=== PATIENT | female | born 1995 | race Caucasian/White ===

== ENCOUNTER 2017-01-04 14:55 | Emergency (ER) ==
[2017-01-04 15:05] VITALS: BP 129/84; TEMP 98.6; BMI 36.8
[2017-01-04 15:50] LABS: BASOPHILS % (AUTO) 0.2 % (0.0-3.0); EOSINOPHILS # (AUTO) 0.2 K/ul (0.0-0.7); EOSINOPHILS % (AUTO) 1.3 % (0.0-7.0); HEMATOCRIT 36.7 % (37.0-47.0); HEMOGLOBIN 13.1 g/dl (12.0-16.0); IMMATURE GRANULOCYTE % (AUTO) 0.3 % (0.0-5.0); LYMPHOCYTES # (AUTO) 2.5 K/uL (0.60-3.4); LYMPHOCYTES % (AUTO) 19.3 (10.0-50.0); MEAN CORPUSCULAR HEMOGLOBIN 31.7 pg (27.0-31.0); MEAN CORPUSCULAR HGB CONC 35.7 (31.8-35.4); MEAN CORPUSCULAR VOLUME 88.9 fl (81.0-99.0); MONOCYTES # (AUTO) 0.7 K/uL (0.4-2.0); MONOCYTES % (AUTO) 5.4 (0-10); NEUTROPHILS # (AUTO) 9.4 K/ul (2.0-6.9); NEUTROPHILS % (AUTO) 73.5; PLATELET COUNT 260 10^3/uL (140-440); RED BLOOD COUNT 4.13 10^6/ul (4.20-5.40); WHITE BLOOD COUNT 12.78 K/ul (4.6-10.2)
[2017-01-04 16:07] LABS: FLU INTERNAL QC INTERNAL QC VALID; RAPID FLU A NEGATIVE (NEGATIVE); RAPID FLU B NEGATIVE (NEGATIVE)
[2017-01-04 16:08] LABS: ALBUMIN 3.4 g/dL (3.4-5.0); ALBUMIN/GLOBULIN RATIO 0.81; ANION GAP 13.7; BILIRUBIN,TOTAL 0.21 mg/dL (0.00-1.20); CALCIUM 9.6 mg/dL (8.2-10.2); CREATININE 0.6 mg/dL (0.60-1.30); POTASSIUM 3.7 mmol/L (3.5-5.10); TOTAL PROTEIN 7.6 g/dL (6.4-8.2)
--- NOTE | 2017-01-04 16:15 | ED.PDOC ---
General ED Provider: Dr. KIRTI ENCINAS Chief Complaint: Respiratory Complaint Stated Complaint: cough, cold symptoms Time Seen by Physician: 15:00 Mode of Arrival: Walk-In Information Source: Patient Exam Limitations: No limitations Primary Care Provider: CIELO MENDOZA Nursing and Triage Documentation Reviewed and Agree: Yes Respiratory Complaint Exam - Respiratory Complaint/Exam Onset/Duration: 1 day Symptoms Are: Still present Timing: Constant Initial Severity: Moderate Current Severity: Moderate Location: Throat Character: Reports: Non-productive cough Aggravating: Reports: Weather Alleviating: Reports: None Associated Signs and Symptoms: Denies: Rapid breathing, Dyspnea, Fever, Chills, Chest pain, Pleuritic chest pain, Wheezing, Hemoptysis, Dizziness, Calf pain, Calf swelling, Edema, URI, Nasal congestion, Hoarseness, Sinus discomfort, Vomiting, Sore throat, Weight loss, Decreased oral intake, Increased thirst, Increased appetite, Increased urination Related History: Reports: Similar episode History of Healthcare-Acquired Pneumonia: No Related Surgical History: Reports: None Pulmonary Embolism Risk Factors: Smoking Cardiac Risk Factors: Reports: None Pseudomonas Risk Factors: Reports: None Tuberculosis Risk Factors: Reports: None Home Oxygen Use: No Recent Stress Test: No Recent Echo/LV Function: No Current Antibiotic Use: No Current Asthma Medication Use: No Respiratory Distress: None Inadequate Respiratory Effort: No Dysphagia Present: No Stridor Present: No JVD Present: No Accessory Muscle Use: No Retractions: Not Present Diminished Breath Sounds: No Grunting Respirations: No Kussmaul Respirations: No Review of Systems - Review Of Systems Constitutional: Reports: Malaise Eyes: Reports: No symptoms Ears, Nose, Mouth, Throat: Reports: Throat pain Respiratory: Reports: No symptoms Cardiac: Reports: No symptoms GI: Reports: No symptoms : Reports: No symptoms Musculoskeletal: Reports: No symptoms Skin: Reports: No symptoms Neurological: Reports: No symptoms Endocrine: Reports: No symptoms Hematologic/Lymphatic: Reports: No symptoms All Other Systems: Reviewed and Negative Past Medical History - Past Medical History Previously Healthy: Yes Endocrine: Reports: None Cardiovascular: Reports: None Respiratory: Reports: None Hematological: Reports: None Gastrointestinal: Reports: None Genitourinary: Reports: None Neuro/Psych: Reports: None Musculoskeletal: Reports: None Cancer: Reports: None Last Menstrual Period: 18 WEEKS AGO - Surgical History General Surgical History: Reports: None - Family History Family History: Reports: None - Social History Smoking Status: Current every day smoker Hx Substance Use: No Alcohol Screening: None Physical Exam - Physical Exam Appearance: Well-appearing, No pain distress, Well-nourished Eyes: FLAVIO, EOMI, Conjunctiva clear ENT: Ears normal, Nose normal, Oropharynx normal Respiratory: Airway patent, Breath sounds clear, Breath sounds equal, Respirations nonlabored Cardiovascular: RRR, Pulses normal, No rub, No murmur GI/: Soft, Nontender, No masses, Bowel sounds normal, No Organomegaly Musculoskeletal: Normal strength, ROM intact, No edema, No calf tenderness Skin: Warm, Dry, Normal color Neurological: Sensation intact, Motor intact, Reflexes intact, Cranial nerves intact, Alert, Oriented Psychiatric: Affect appropriate, Mood appropriate Critical Care Note - Critical Care Note Total Time (mins): 0 Course - Course Hematology/Chemistry: 01/04/17 15:43 01/04/17 15:43 Orders, Labs, Meds: Lab Review 01/04/17 15:43 WBC 12.78 H RBC 4.13 L Hgb 13.1 Hct 36.7 L MCV 88.9 MCH 31.7 H MCHC 35.7 H RDW Coeff of Berto 12.9 Plt Count 260 Immature Gran % (Auto) 0.3 Neut % (Auto) 73.5 Lymph % (Auto) 19.3 Mcpherson % (Auto) 5.4 Eos % (Auto) 1.3 Baso % (Auto) 0.2 Immature Gran # (Auto) 0.0 Neut # 9.4 H Lymph # 2.5 Mcpherson # 0.7 Eos # 0.2 Baso # 0.0 Sodium 137 Potassium 3.7 Chloride 105 Carbon Dioxide 22 Anion Gap 13.7 BUN 6 L Creatinine 0.60 Estimated GFR (MDRD) 124.00 BUN/Creatinine Ratio 10.00 Glucose 101 Calcium 9.6 Total Bilirubin 0.21 AST 15 ALT 19 Alkaline Phosphatase 58 Total Protein 7.6 Albumin 3.4 Globulin 4.2 Albumin/Globulin Ratio 0.81 Influenza A (Rapid) Negative Influenza B (Rapid) Negative Orders Category Date Time Status BLOOD CULTURE Stat LAB 01/04/17 15:43 Received CBC W/ AUTO DIFF Stat LAB 01/04/17 15:43 Completed COMPREHENSIVE METABOLIC PANEL Stat LAB 01/04/17 15:43 Received MOLECULAR GROUP A STREP Stat LAB 01/04/17 15:43 Results RAPID FLU A/B Stat LAB 01/04/17 15:43 Completed STREP SCREEN Stat LAB 01/04/17 15:43 Results Vital Signs: Temp Pulse Resp BP Pulse Ox 01/04/17 15:01 98.6 F 107 H 16 129/84 98 Departure - Departure Time of Disposition: 17:00 Disposition: HOME SELF-CARE Discharge Problem: Viral infection Instructions: Viral Syndrome (ED) Condition: Good Pt referred to PMD for follow-up: No Additional Instructions: Please call your Family Physician as soon as possible to schedule a follow-up appointment. Allergies/Adverse Reactions: Allergies amoxicillin Adverse Reaction (Verified 01/04/17 15:05) cefaclor [From Ceclor] Adverse Reaction (Verified 01/04/17 15:05) ciprofloxacin [From Ciprodex] Adverse Reaction (Verified 01/04/17 15:05) dexamethasone [From Ciprodex] Adverse Reaction (Verified 01/04/17 15:05) POLYHISTINE Adverse Reaction (Uncoded 01/04/17 15:05) SUPPREX Adverse Reaction (Uncoded 01/04/17 15:05) Home Medications: Ambulatory Orders Pnv95/Ferrous Fumarate/FA [ Tablet] 1 each PO DAILY 01/04/17
== END 2017-01-04 16:48 | disposition home or self-care (01) ==
LOC: ED 14:55
DX: B34.9 Viral infection, unspecified (principal); F17.210 Nicotine dependence, cigarettes, uncomplicated
CPT/HCPCS: 36415; 80053; 85025; 87040; 87651; 87804; 87880; 99283

== ENCOUNTER 2017-10-17 08:11 | Outpatient (CLI) ==
--- NOTE | 2017-10-17 08:44 | US ---
EXAM: Left breast ultrasound HISTORY: Unspecified lump in the left breast COMPARISON: None FINDINGS: Ultrasound left breast was performed in the region of clinical concern, 4 o'clock position . No mass or cyst identified. No sonographic abnormality identified. IMPRESSION: No sonographic abnormality identified in the region of clinical concern. Clinical follo w-up recommended. BIRADS category 1, negative
[2017-10-17 08:46] LABS: BASOPHILS % (AUTO) 0.4 % (0.0-3.0); EOSINOPHILS # (AUTO) 0.2 K/ul (0.0-0.7); EOSINOPHILS % (AUTO) 1.9 % (0.0-7.0); HEMATOCRIT 46.9 % (37.0-47.0); HEMOGLOBIN 16.5 g/dl (12.0-16.0); IMMATURE GRANULOCYTE % (AUTO) 0.2 % (0.0-5.0); MEAN CORPUSCULAR HEMOGLOBIN 30.8 pg (27.0-31.0); MEAN CORPUSCULAR HGB CONC 35.2 (31.8-35.4); MEAN CORPUSCULAR VOLUME 87.5 fl (81.0-99.0); MONOCYTES # (AUTO) 0.5 K/uL (0.4-2.0); MONOCYTES % (AUTO) 6.4 (0-10); NEUTROPHILS # (AUTO) 4.7 K/ul (2.0-6.9); NEUTROPHILS % (AUTO) 56.1; PLATELET COUNT 267 10^3/uL (140-440); RED BLOOD COUNT 5.36 10^6/ul (4.20-5.40); WHITE BLOOD COUNT 8.44 K/ul (4.6-10.2)
[2017-10-17 09:29] LABS: ALBUMIN 3.7 g/dL (3.4-5.0); ALBUMIN/GLOBULIN RATIO 0.95; ANION GAP 11.6; BILIRUBIN,TOTAL 0.39 mg/dL (0.00-1.20); BUN/CREATININE RATIO 13.41; CALCIUM 9.6 mg/dL (8.2-10.2); CHOL/HDL RATIO 5.1 (4.5-5.5); CREATININE 0.82 mg/dL (0.60-1.30); POTASSIUM 3.6 mmol/L (3.5-5.10); TOTAL PROTEIN 7.6 g/dL (6.4-8.2)
== END 2017-10-17 08:12 | disposition home or self-care (01) ==
LOC: RAD 08:11
PROVIDERS: ATTEND Nurse Practitioner Family
DX: N63.20 Unspecified lump in the left breast, unspecified quadrant (principal); N64.4 Mastodynia; Z00.00 Encounter for general adult medical examination without abnormal findings
CPT/HCPCS: 36415; 80053; 80061; 84443; 85025

== ENCOUNTER 2017-10-31 14:43 | Outpatient (CLI) | END 2017-10-31 14:44 | disposition home or self-care (01) | LOC: LAB 14:43 | PROVIDERS: ATTEND Nurse Practitioner Family | DX: J02.9 Acute pharyngitis, unspecified (principal) | CPT/HCPCS: 87651; 87880 ==

== ENCOUNTER 2018-03-21 08:48 | Outpatient (CLI) | END 2018-03-21 08:49 | disposition home or self-care (01) | LOC: LAB 08:48 | PROVIDERS: ATTEND Family Medicine | DX: L68.0 Hirsutism (principal); Z68.38 Body mass index [BMI] 38.0-38.9, adult; O24.419 Gestational diabetes mellitus in pregnancy, unspecified control | CPT/HCPCS: 36415; 80053; 82626; 83036; 84402; 84443; 85025 ==

== ENCOUNTER 2018-08-29 02:15 | Emergency (ER) ==
[2018-08-29 02:27] VITALS: BP 125/85; TEMP 97.2
[2018-08-29] MEDS ORDERED: MORPHINE 2 MG/ML SYRINGE IM STA (02:38)
[2018-08-29] MEDS ORDERED: ZOFRAN 4 MG/2 ML IM STA (02:39)
[2018-08-29] MEDS ORDERED: TORADOL IM STA (02:39)
--- NOTE | 2018-08-29 02:42 | ED.PDOC ---
General ED Provider: Dr. CAIO RODRIGEZ-ER Chief Complaint: Earache Stated Complaint: my ear hurts--its so swollen Time Seen by Physician: 02:20 Mode of Arrival: Walk-In Information Source: Patient Exam Limitations: No limitations Primary Care Provider: SHANELL EDUARDO Nursing and Triage Documentation Reviewed and Agree: Yes Does patient meet sepsis criteria?: No System Inflammatory Response Syndrome: Not Applicable Sepsis Protocol: For patient's 13 years and over: Temp is 96.8 and below OR 101 and greater Pulse >90 BPM Resp >20/minute Acutely Altered Mental Status Are patient's symptoms suggestive of a new infection, such as: -Pneumonia -Skin, Soft Tissue -Endocarditis -UTI -Bone, Joint Infection -Implantable Device -Acute Abdominal Infection -Wound Infection -Meningitis -Blood Stream Catheter Infection -Unknown EENT Complaint Exam - Ear Complaint/Exam Onset/Duration: 2 days Symptoms Are: Still present Timing: Constant Initial Severity: Mild Current Severity: Moderate Character: Reports: Dull pain, Aching pain, Throbbing pain Aggravating: Reports: None Alleviating: Reports: None Associated Signs and Symptoms: Reports: Ear swelling, Pain to external ear Related History: Reports: Similar Episode Ear Surgical History: None Vesicles to External Pinna: No Vesicles to Tragus: No TMJ Tenderness: None Tragal Tenderness: Right External Canal: Erythema, Tenderness, Swelling Tympanic Membrane: Erythema Differential Diagnoses: Otitis Externa, Otitis Media Review of Systems - Review Of Systems Constitutional: Reports: No symptoms Eyes: Reports: No symptoms Ears, Nose, Mouth, Throat: Reports: Ear pain Respiratory: Reports: No symptoms Cardiac: Reports: No symptoms GI: Reports: No symptoms : Reports: No symptoms Musculoskeletal: Reports: No symptoms Skin: Reports: No symptoms Neurological: Reports: No symptoms Endocrine: Reports: No symptoms Hematologic/Lymphatic: Reports: No symptoms All Other Systems: Reviewed and Negative Past Medical History - Past Medical History Previously Healthy: Yes Endocrine: Reports: None Cardiovascular: Reports: None Respiratory: Reports: None Hematological: Reports: None Gastrointestinal: Reports: None Genitourinary: Reports: None Neuro/Psych: Reports: None Musculoskeletal: Reports: None Cancer: Reports: None Last Menstrual Period: 1 WEEK AGO - Surgical History General Surgical History: Reports: None - Family History Family History: Reports: None - Social History Smoking Status: Current every day smoker, Heavy tobacco smoker Hx Substance Use: No Alcohol Screening: None - Immunizations Tetanus Shot up to Date: Yes Physical Exam - Physical Exam Appearance: Well-appearing, No pain distress, Well-nourished Eyes: FLAVIO ENT: Nose normal, Oropharynx normal, Erythema, Exudate Neck: Supple Respiratory: Airway patent, Breath sounds clear, Breath sounds equal, Respirations nonlabored Cardiovascular: RRR, Pulses normal, No rub, No murmur GI/: Soft, Nontender, No masses, Bowel sounds normal, No Organomegaly Musculoskeletal: Normal strength, ROM intact, No edema, No calf tenderness Skin: Warm, Dry, Normal color Neurological: Sensation intact, Motor intact, Reflexes intact, Cranial nerves intact, Alert, Oriented Psychiatric: Affect appropriate, Mood appropriate Critical Care Note - Critical Care Note Total Time (mins): 0 Course - Course Orders, Labs, Meds: Orders Category Date Time Status Ketorolac Tromethamine [Toradol] MEDS 08/29/18 02:39 Stat 60 mg IM ONCE STA Morphine Sulfate [Morphine 2 mg/ml Syringe] MEDS 08/29/18 02:38 Stat 4 mg IM ONCE STA Ondansetron HCl/Pf [Zofran 4 mg/2 ml] MEDS 08/29/18 02:39 Stat 4 mg IM ONCE STA Medications Generic Name Dose Route Start Last Admin Trade Name Freq PRN Reason Stop Dose Admin Ketorolac Tromethamine 60 mg 08/29/18 02:39 Toradol IM 08/29/18 02:40 ONCE STA Morphine Sulfate 4 mg 08/29/18 02:38 Morphine 2 Mg/Ml Syringe IM 08/29/18 02:39 ONCE STA Ondansetron HCl 4 mg 08/29/18 02:39 Zofran 4 Mg/2 Ml IM 08/29/18 02:40 ONCE STA Vital Signs: Temp Pulse Resp BP Pulse Ox 08/29/18 02:15 97.2 F L 92 H 18 125/85 98 Departure - Departure Time of Disposition: 02:42 Disposition: HOME SELF-CARE Discharge Problem: Otitis externa Qualifiers: Otitis externa type: diffuse Chronicity: acute Laterality: right Qualified Code (s): H60.311 - Diffuse otitis externa, right ear Otitis media Qualifiers: Otitis media type: unspecified Chronicity: acute Qualified Code(s): H66.90 - Otitis media, unspecified, unspecified ear Instructions: Otitis Externa (ED) Condition: Good Pt referred to PMD for follow-up: Yes IPMP verified?: No Additional Instructions: continue oral antbx--change ear drop to vosol otic drops 5 drops into the ear tid --norco 7.5mg q 6hrs prn pain #10---f/u wtih dr eduardo this week Allergies/Adverse Reactions: Allergies amoxicillin Adverse Reaction (Verified 08/29/18 02:26) cefaclor [From Ceclor] Adverse Reaction (Verified 08/29/18 02:26) Swelling ciprofloxacin [From Ciprodex] Adverse Reaction (Verified 08/29/18 02:26) Swelling SWELLING WITH EAR DROPS dexamethasone [From Ciprodex] Adverse Reaction (Verified 08/29/18 02:26) POLYHISTINE Adverse Reaction (Uncoded 08/29/18 02:26) SUPPREX Adverse Reaction (Uncoded 08/29/18 02:26) Home Medications: Ambulatory Orders Acetaminophen [Tylenol] 1,000 gm PO DIRECTED PRN 08/29/18 Azelastine HCl [Astelin 0.1%] 1 spray NS BID PRN 08/29/18 Fluticasone Propionate [Flonase] 2 spray NS DAILY PRN 08/29/18 Ibuprofen 200 mg PO Q2H PRN 08/29/18 Disposition Discussed With: Patient, Family
== END 2018-08-29 03:22 | disposition home or self-care (01) ==
LOC: ED 02:15
DX: H60.311 Diffuse otitis externa, right ear (principal); H66.90 Otitis media, unspecified, unspecified ear; F17.210 Nicotine dependence, cigarettes, uncomplicated
CPT/HCPCS: 96372; 99282

== ENCOUNTER 2018-08-30 12:58 | Outpatient (CLI) | END 2018-08-30 12:59 | disposition home or self-care (01) | LOC: CAR 12:58 | PROVIDERS: ATTEND Family Medicine | DX: H61.321 Acquired stenosis of right external ear canal secondary to inflammation and infection (principal) | CPT/HCPCS: 93005; 93010 ==

== ENCOUNTER 2018-09-01 13:33 | Emergency (ER) ==
[2018-09-01 13:38] VITALS: BP 124/82; TEMP 98.9; BMI 37.7
[2018-09-01] MEDS ORDERED: NORCO 10-325 PO STA (14:20)
[2018-09-01] MEDS ORDERED: LIDOCAINE HCL 1% SDV IM STA (14:21)
[2018-09-01] MEDS ORDERED: ROCEPHIN IM STA (14:21)
--- NOTE | 2018-09-01 14:24 | ED.PDOC ---
General ED Provider: Dr. KIRTI ENCINAS Chief Complaint: Earache Stated Complaint: right ear pain Time Seen by Physician: 13:45 Mode of Arrival: Walk-In Information Source: Patient Exam Limitations: No limitations Primary Care Provider: SHANELL DALE Nursing and Triage Documentation Reviewed and Agree: Yes Does patient meet sepsis criteria?: Yes If yes, has appropriate treatment been initiated?: No System Inflammatory Response Syndrome: Not Applicable Sepsis Protocol: For patient's 13 years and over: Temp is 96.8 and below OR 101 and greater Pulse >90 BPM Resp >20/minute Acutely Altered Mental Status Are patient's symptoms suggestive of a new infection, such as: -Pneumonia -Skin, Soft Tissue -Endocarditis -UTI -Bone, Joint Infection -Implantable Device -Acute Abdominal Infection -Wound Infection -Meningitis -Blood Stream Catheter Infection -Unknown EENT Complaint Exam - Ear Complaint/Exam Onset/Duration: 4 DAYS TX WITH ANTIBIOTICS X 3 DAYS Symptoms Are: Still present Timing: Intermittent Initial Severity: Mild Current Severity: Mild Character: Reports: Dull pain Aggravating: Reports: None Alleviating: Reports: None Associated Signs and Symptoms: Denies: Ear trauma, Ear swelling, Discharge, Fever, Hearing loss, Bleeding, Sore throat, Headache, URI symptoms, Foreign body sensation, Rash, Pain to external ear, Pain to external face Ear Surgical History: None Vesicles to External Pinna: No Vesicles to Tragus: No TMJ Tenderness: None Mastoid Tenderness: None Tragal Tenderness: None External Canal: Normal Tympanic Membrane: Erythema Differential Diagnoses: URI Review of Systems - Review Of Systems Constitutional: Reports: No symptoms Eyes: Reports: No symptoms Ears, Nose, Mouth, Throat: Reports: Ear pain (RIGHT) Respiratory: Reports: No symptoms Cardiac: Reports: No symptoms GI: Reports: No symptoms : Reports: No symptoms Musculoskeletal: Reports: No symptoms Skin: Reports: No symptoms Neurological: Reports: No symptoms Endocrine: Reports: No symptoms Hematologic/Lymphatic: Reports: No symptoms All Other Systems: Reviewed and Negative Past Medical History - Past Medical History Previously Healthy: Yes Endocrine: Reports: None Cardiovascular: Reports: None Respiratory: Reports: None Hematological: Reports: None Gastrointestinal: Reports: None Genitourinary: Reports: None Neuro/Psych: Reports: None Musculoskeletal: Reports: None Cancer: Reports: None Last Menstrual Period: 2 weeks ago - Surgical History General Surgical History: Reports: None - Family History Family History: Reports: None - Social History Smoking Status: Current every day smoker, Heavy tobacco smoker Hx Substance Use: No Alcohol Screening: None Physical Exam - Physical Exam Appearance: Well-appearing, No pain distress, Well-nourished Eyes: FLAVIO, EOMI, Conjunctiva clear ENT: Erythema (RIGHT TM) Respiratory: Airway patent, Breath sounds clear, Breath sounds equal, Respirations nonlabored Cardiovascular: RRR, Pulses normal, No rub, No murmur GI/: Soft, Nontender, No masses, Bowel sounds normal, No Organomegaly Musculoskeletal: Normal strength, ROM intact, No edema, No calf tenderness Skin: Warm, Dry, Normal color Neurological: Sensation intact, Motor intact, Reflexes intact, Cranial nerves intact, Alert, Oriented Psychiatric: Affect appropriate, Mood appropriate Critical Care Note - Critical Care Note Total Time (mins): 0 Course - Course Orders, Labs, Meds: Orders Category Date Time Status Ceftriaxone Sodium [Rocephin] MEDS 09/01/18 14:21 Stat 1 gm IM ONCE STA Hydrocodone Bit/Acetaminophen [Brainard 10-325] MEDS 09/01/18 14:20 Stat 1 tab PO ONCE STA Lidocaine HCl/Pf [Lidocaine HCl 1% Sdv] MEDS 09/01/18 14:21 Stat 2.1 ml IM ONCE STA Medications Generic Name Dose Route Start Last Admin Trade Name Lito PRN Reason Stop Dose Admin Hydrocodone Bitart/Acetaminophen 1 tab 09/01/18 14:20 Brainard 10-325 PO 09/01/18 14:21 ONCE STA Ceftriaxone Sodium 1 gm 09/01/18 14:21 Rocephin IM 09/01/18 14:22 ONCE STA Lidocaine HCl 2.1 ml 09/01/18 14:21 Lidocaine Hcl 1% Sdv IM 09/01/18 14:22 ONCE STA Vital Signs: Temp Pulse Resp BP Pulse Ox 09/01/18 13:33 98.9 F 87 20 124/82 97 Departure - Departure Time of Disposition: 14:25 Disposition: HOME SELF-CARE Discharge Problem: Ear problem, Ear infection Otitis media Qualifiers: Otitis media type: unspecified Chronicity: acute Qualified Code(s): H66.90 - Otitis media, unspecified, unspecified ear Instructions: Ear Infection (ED) Condition: Good Pt referred to PMD for follow-up: Yes IPMP verified?: No Additional Instructions: Please call your Family Physician as soon as possible to schedule a follow-up appointment. Allergies/Adverse Reactions: Allergies amoxicillin Adverse Reaction (Verified 09/01/18 13:39) cefaclor [From Ceclor] Adverse Reaction (Verified 09/01/18 13:39) Swelling POLYHISTINE Adverse Reaction (Uncoded 08/29/18 02:26) SUPPREX Adverse Reaction (Uncoded 08/29/18 02:26) Home Medications: Ambulatory Orders Acetaminophen [Tylenol] 1,000 gm PO DIRECTED PRN 08/29/18 Ibuprofen 200 mg PO Q2H PRN 08/29/18 Acetic Acid 15 ml OT DIRECTED 08/30/18 Disposition Discussed With: Patient
== END 2018-09-01 14:53 | disposition home or self-care (01) ==
LOC: ED 13:33
DX: H92.01 Otalgia, right ear (principal); H66.90 Otitis media, unspecified, unspecified ear
CPT/HCPCS: 96372; 99282

== ENCOUNTER 2019-02-03 13:55 | Outpatient (CLI) | payer BC, OTHER | END 2019-02-03 13:56 | disposition home or self-care (01) | LOC: RHC-LAB 13:55 → FCC-LAB 13:56 | PROVIDERS: ATTEND Family Medicine | DX: R68.89 Other general symptoms and signs (principal) | CPT/HCPCS: 87502 ==